=== PATIENT | male | born 1970 | race Caucasian/White ===

== ENCOUNTER 2017-11-10 14:10 | Emergency (ER) | payer MEDICARE ==
[~2017-11-10] VITALS: Ht 182.9 cm; Wt 83.1 kg
[2017-11-10 15:27] LABS: BASOPHILS # (AUTO) 0.05 x10^3/uL (0-0.1); BASOPHILS % (AUTO) 1 % (0-1); EOSINOPHILS # (AUTO) 0.11 x10^3/uL (0-0.4); EOSINOPHILS % (AUTO) 2 % (1-7); LYMPHOCYTES # (AUTO) 2.11 x10^3/uL (1-3.4); LYMPHOCYTES % (AUTO) 28 % (22-44); MD NO; MEAN CORPUSCULAR HEMOGLOBIN 28.5 pg (27.5-34.5); MEAN CORPUSCULAR HGB CONC 33.2 g/dL (33.2-36.2); MEAN CORPUSCULAR VOLUME 85.7 fL (81-97); MEAN PLATELET VOLUME 7.3 fL (7.4-10.4); MONOCYTES # (AUTO) 0.36 x10^3/uL (0.2-0.8); MONOCYTES % (AUTO) 5 % (2-9); NEUTROPHILS # (AUTO) 5.01 x10^3/uL (1.8-6.8); NEUTROPHILS % (AUTO) 66 % (42-75); PLATELET COUNT 287 x10^3/uL (130-400); RED BLOOD COUNT 4.43 x10^6/uL (4.38-5.82); RED CELL DISTRIBUTION WIDTH 14.1 % (9.4-14.8)
[2017-11-10 15:34] LABS: ANION GAP 2 mmol/L (5-15); CALCIUM 8.1 mg/dL (8.5-10.1); CHLORIDE 113 mmol/L (98-107); CREATININE 0.78 mg/dL (0.7-1.3)
[2017-11-10 16:32] VITALS: BP 116/72
== END 2017-11-10 16:34 | disposition home or self-care (01) ==
LOC: ED 16:32
DX: Z00.00 Encounter for general adult medical examination without abnormal findings (principal); R68.83 Chills (without fever)
CPT/HCPCS: 36415; 80048; 85025; 93005; 99285

== ENCOUNTER 2017-11-16 21:51 | Emergency (ER) | payer MEDICARE ==
[~2017-11-16] VITALS: Ht 170.2 cm; Wt 65.0 kg
[2017-11-16] MEDS ORDERED: DIPHENHYDRAMINE 50 MG/ML, 1ML ONE (22:15)
[2017-11-16] MEDS ORDERED: KETOROLAC 30 MG/1 ML ONE (22:15)
[2017-11-16] MEDS ORDERED: METOCLOPRAMIDE 5 MG/ML, 2ML ONE (22:15)
[2017-11-16] MEDS ORDERED: METOCLOPRAMIDE 5 MG/ML, 2ML IVPush ONE (22:30)
[2017-11-16] MEDS ORDERED: DIPHENHYDRAMINE 50 MG/ML, 1ML IVPush ONE (22:30)
[2017-11-16] MEDS ORDERED: KETOROLAC 30 MG/1 ML IVPush ONE (22:30)
[2017-11-16 22:31] LABS: BASOPHILS % (AUTO) 1 % (0-1); EOSINOPHILS % (AUTO) 1 % (1-7); LYMPHOCYTES % (AUTO) 36 % (22-44); MD NO; MEAN CORPUSCULAR HEMOGLOBIN 27.7 pg (27.5-34.5); MEAN CORPUSCULAR HGB CONC 32.9 g/dL (33.2-36.2); MEAN CORPUSCULAR VOLUME 83.9 fL (81-97); MEAN PLATELET VOLUME 7.8 fL (7.4-10.4); MONOCYTES # (AUTO) 0.84 x10^3/uL (0.2-0.8); MONOCYTES % (AUTO) 11 % (2-9); NEUTROPHILS # (AUTO) 4.12 x10^3/uL (1.8-6.8); NEUTROPHILS % (AUTO) 51 % (42-75); PLATELET COUNT 294 x10^3/uL (130-400); RED BLOOD COUNT 4.95 x10^6/uL (4.38-5.82); RED CELL DISTRIBUTION WIDTH 14.3 % (9.4-14.8)
[2017-11-16 22:43] LABS: ALBUMIN 3.5 g/dL (3.4-5.0); ANION GAP 3 mmol/L (5-15); CALCIUM 8.6 mg/dL (8.5-10.1); CHLORIDE 110 mmol/L (98-107); CREATININE 0.71 mg/dL (0.7-1.3); SALICYLATE LEVEL < 1.7 mg/dL (2.8-20.0)
[2017-11-16 23:29] VITALS: BP 96/57
[2017-11-16 23:30] LABS: AMPHETAMINE SCREEN, URINE Negative (Negative); BARBITURATE SCREEN, URINE Negative (Negative); BENZODIAZEPINE SCREEN, URINE Negative (Negative); CANNABINOID SCREEN, URINE Negative (Negative); COCAINE SCREEN, URINE Negative (Negative); METHADONE SCREEN, URINE Negative (Negative); OPIATE SCREEN, URINE Negative (Negative)
== END 2017-11-17 00:03 | disposition home or self-care (01) ==
LOC: ED 23:15
DX: G43.C1 Periodic headache syndromes in child or adult, intractable (principal); Z72.9 Problem related to lifestyle, unspecified; F17.200 Nicotine dependence, unspecified, uncomplicated
CPT/HCPCS: 36415; 70450; 80048; 80307; 80329; 82040; 85025; 96374; 96375; 99285; J1200; J1885; J2765; G0480

== ENCOUNTER 2017-11-25 20:04 | Emergency (ER) | payer MEDICARE ==
[~2017-11-25] VITALS: Ht 182.9 cm; Wt 86.0 kg
[2017-11-25 20:30] LABS: BASOPHILS # (AUTO) 0.05 x10^3/uL (0-0.1); BASOPHILS % (AUTO) 1 % (0-1); EOSINOPHILS % (AUTO) 2 % (1-7); LYMPHOCYTES # (AUTO) 2.22 x10^3/uL (1-3.4); LYMPHOCYTES % (AUTO) 35 % (22-44); MD NO; MEAN CORPUSCULAR HEMOGLOBIN 27.4 pg (27.5-34.5); MEAN CORPUSCULAR HGB CONC 32.3 g/dL (33.2-36.2); MEAN CORPUSCULAR VOLUME 84.8 fL (81-97); MEAN PLATELET VOLUME 7.4 fL (7.4-10.4); MONOCYTES # (AUTO) 0.59 x10^3/uL (0.2-0.8); MONOCYTES % (AUTO) 9 % (2-9); NEUTROPHILS # (AUTO) 3.32 x10^3/uL (1.8-6.8); NEUTROPHILS % (AUTO) 53 % (42-75); PLATELET COUNT 233 x10^3/uL (130-400); RED BLOOD COUNT 4.72 x10^6/uL (4.38-5.82); RED CELL DISTRIBUTION WIDTH 14.5 % (9.4-14.8)
[2017-11-25 20:42] LABS: ALBUMIN 3.5 g/dL (3.4-5.0); ANION GAP 7 mmol/L (5-15); CALCIUM 8.7 mg/dL (8.5-10.1); CHLORIDE 110 mmol/L (98-107); CREATININE 0.93 mg/dL (0.7-1.3)
[2017-11-25] MEDS ORDERED: ACETAMINOPHEN 500 MG TABLET ONE (20:46)
[2017-11-25] MEDS ORDERED: ACETAMINOPHEN 500 MG TABLET PO ONE (21:00)
[2017-11-25] MEDS ORDERED: HYDROcodone/APAP 5/325 TABLET ONE (21:26)
[2017-11-25 21:28] VITALS: BP 129/74
== END 2017-11-25 21:36 | disposition home or self-care (01) ==
LOC: ED 21:16
DX: B86 Scabies (principal); B34.9 Viral infection, unspecified; H92.09 Otalgia, unspecified ear; F43.10 Post-traumatic stress disorder, unspecified; Z90.89 Acquired absence of other organs; Z87.891 Personal history of nicotine dependence
CPT/HCPCS: 36415; 80048; 82040; 85025; 93005; 99285

== ENCOUNTER 2017-12-02 16:31 | Emergency (ER) | payer MEDICARE ==
[~2017-12-02] VITALS: Ht 182.9 cm; Wt 84.0 kg
[2017-12-02 18:00] VITALS: BP 125/68
[2017-12-02] MEDS ORDERED: ACETAMINOPHEN 325 MG TABLET ONE (18:06)
[2017-12-02] MEDS ORDERED: ACETAMINOPHEN 325 MG TABLET PO ONE (18:30)
== END 2017-12-02 18:18 | disposition home or self-care (01) ==
LOC: ED 17:20
DX: S06.0X0A Concussion without loss of consciousness, initial encounter (principal); F17.210 Nicotine dependence, cigarettes, uncomplicated; Z90.89 Acquired absence of other organs; X58.XXXA Exposure to other specified factors, initial encounter; Y93.89 Activity, other specified; Y99.8 Other external cause status; Y92.89 Other specified places as the place of occurrence of the external cause
CPT/HCPCS: 70450; 99284

== ENCOUNTER 2018-01-29 11:05 | Emergency (ER) | payer MEDICARE ==
[~2018-01-29] VITALS: Ht 182.9 cm; Wt 82.9 kg
[2018-01-29 11:07] VITALS: BP 126/85
== END 2018-01-29 12:07 | disposition home or self-care (01) ==
LOC: ED 12:00
DX: S51.041A Puncture wound with foreign body of right elbow, initial encounter (principal); W46.0XXA Contact with hypodermic needle, initial encounter; Y93.89 Activity, other specified; Y92.89 Other specified places as the place of occurrence of the external cause; Y99.8 Other external cause status; Z59.0 Homelessness
CPT/HCPCS: 99284

== ENCOUNTER 2018-01-30 16:09 | Emergency (ER) | payer MEDICARE ==
[~2018-01-30] VITALS: Ht 182.9 cm; Wt 83.3 kg
[2018-01-30] MEDS ORDERED: ONDANSETRON ODT 4 MG ONE (16:56)
[2018-01-30] MEDS ORDERED: ZIPRASIDONE 20 MG INJ IM ONE ×2 (17:00→17:29)
[2018-01-30] MEDS ORDERED: ONDANSETRON ODT 4 MG PO ONE (17:00)
[2018-01-30] MEDS ORDERED: CEPHALEXIN 500 MG CAPSULE PO ONE (17:00)
[2018-01-30] MEDS ORDERED: CEPHALEXIN 500 MG CAPSULE ONE (17:29)
[2018-01-30 17:35] LABS: BASOPHILS # (AUTO) 0.01 x10^3/uL (0-0.1); BASOPHILS % (AUTO) 0 % (0-1); EOSINOPHILS # (AUTO) 0.05 x10^3/uL (0-0.4); EOSINOPHILS % (AUTO) 1 % (1-7); LYMPHOCYTES # (AUTO) 0.79 x10^3/uL (1-3.4); LYMPHOCYTES % (AUTO) 11 % (22-44); MD NO; MEAN CORPUSCULAR HEMOGLOBIN 27.9 pg (27.5-34.5); MEAN CORPUSCULAR HGB CONC 33.5 g/dL (33.2-36.2); MEAN CORPUSCULAR VOLUME 83.4 fL (81-97); MEAN PLATELET VOLUME 7.9 fL (7.4-10.4); MONOCYTES # (AUTO) 0.36 x10^3/uL (0.2-0.8); MONOCYTES % (AUTO) 5 % (2-9); NEUTROPHILS # (AUTO) 6.33 x10^3/uL (1.8-6.8); NEUTROPHILS % (AUTO) 84 % (42-75); PLATELET COUNT 237 x10^3/uL (130-400); RED BLOOD COUNT 5.95 x10^6/uL (4.38-5.82); RED CELL DISTRIBUTION WIDTH 14.8 % (9.4-14.8)
[2018-01-30 17:37] LABS: ALANINE AMINOTRANSFERASE 412 U/L (12-78); ALBUMIN 4.1 g/dL (3.4-5.0); ANION GAP 9 mmol/L (5-15); CALCIUM 8.9 mg/dL (8.5-10.1); CHLORIDE 106 mmol/L (98-107); CREATININE 0.86 mg/dL (0.7-1.3)
[2018-01-30 17:39] LABS: ALKALINE PHOSPHATASE 86 U/L (45-117); BILIRUBIN,TOTAL 1.3 mg/dL (0.2-1.0); TOTAL PROTEIN 8.4 g/dL (6.4-8.2)
[2018-01-30] MEDS ORDERED: IBUPROFEN 200 MG TABLET ONE (18:43)
[2018-01-30] MEDS ORDERED: IBUPROFEN 200 MG TABLET PO ONE (19:00)
[2018-01-30 20:33] VITALS: BP 103/70
== END 2018-01-30 21:08 | disposition home or self-care (01) ==
LOC: ED 16:35
DX: A08.11 Acute gastroenteropathy due to Norwalk agent (principal); F20.89 Other schizophrenia; K70.10 Alcoholic hepatitis without ascites; Z72.9 Problem related to lifestyle, unspecified; R94.5 Abnormal results of liver function studies; Z59.0 Homelessness; Z90.89 Acquired absence of other organs
CPT/HCPCS: 36415; 74021; 76700; 80053; 83690; 85025; 96372; 99285; J3486; Q0162